=== PATIENT | male | born 1990 | race Native Hawaiian/Other Pacific Islander ===

== ENCOUNTER 2019-01-01 | Outpatient (CLI) | payer OTHER | END 2019-01-01 11:03 | disposition home or self-care (01) | DX: R06.83 Snoring (principal); R06.81 Apnea, not elsewhere classified; G47.8 Other sleep disorders; G47.10 Hypersomnia, unspecified | CPT/HCPCS: 99203; 99212 ==

== ENCOUNTER 2019-02-19 19:18 | Outpatient (CLI) | payer OTHER | END 2019-02-19 19:19 | disposition home or self-care (01) | LOC: SC 19:18 | PROVIDERS: ATTEND Internal Medicine Pulmonary Disease | DX: R06.83 Snoring (principal) | CPT/HCPCS: 95810 ==

== ENCOUNTER 2019-03-06 08:38 | Outpatient (CLI) | payer OTHER ==
--- NOTE | 2019-03-06 09:39 | SLEEP CARE CONSULTATION ---
Information from patient questionnaire entered by Blanca Onofre. I have reviewed and concur with the information entered by Blanca Onofre. This document represents the service I personally performed and the decisions made by me, Nancy Sierra MD, [facility] [place]. History of Present Illness Initial [place] Sleepiness Scale score: 16 Current [place] Sleepiness Scale score: 15 Additional HPI information: HPI: Mr. Colvin returned for follow up of the sleep study he had on 02/19/2019. The polysomnography showed that the patient had slightly reduced sleep efficiency due to frequent awakenings in the second half of the night. Except for mild sleep fragmentation, the sleep architecture was normal. Respiratory monitoring showed no significant sleep disordered breathing (AHI = 4.3) or hypoxia (gt oxygen saturation of 87% and only 0.2% to the total sleep time was spent with oxygen saturation below 90%). The few respiratory events occurred almost exclusively during supine sleep (supine AHI = 6.7; non-supine = 2.34). Snore was loud in intensity. There was no significant periodic leg movement of sleep. Cardiac rhythm was normal sinus rhythm without significant arrhythmia. No abnormal behavior (parasomnia) observed during the night. The patient was informed of these findings. I explained to him that overall he does not have significant sleep disordered breathing but during supine sleep he appears to have mild obstructive sleep apnea-hypopnea. The patient states that he sleeps mostly on his back at home. Allergies and Home Medications Drug allergies reviewed: Yes Home medication list reviewed: Yes Review of Systems Review of systems same as previous: Yes Physical Exam Height: 5 ft 5 in Weight: 175 lb Body Mass Index: 29.1 BMI Classification: Overweight Impression and Plan IMPRESSION: 1. Obstructive Sleep Apnea-Hypopnea Syndrome, positional. The patient would like to have the sleep study repeated with him sleeping more supine like he does at home. PLAN: 1. Repeat the in-laboratory polysomnography. 2. Avoid sleep supine at home for the time being. 3. Try to lose weight. 4. Return for follow up again after the sleep study. I spent 100% of this 20 minute visit face to face with the patient with greater than 50% of this was spent time counseling the patient and coordination of care.
== END 2019-03-06 08:39 | disposition home or self-care (01) ==
LOC: SC 08:38
PROVIDERS: ATTEND Internal Medicine Pulmonary Disease
DX: G47.33 Obstructive sleep apnea (adult) (pediatric) (principal)
CPT/HCPCS: 99212; 99213

== ENCOUNTER 2019-04-01 20:27 | Outpatient (CLI) | payer OTHER | END 2019-04-01 20:28 | disposition home or self-care (01) | LOC: SC 20:27 | PROVIDERS: ATTEND Internal Medicine Pulmonary Disease | DX: R06.83 Snoring (principal); G47.10 Hypersomnia, unspecified; R06.81 Apnea, not elsewhere classified | CPT/HCPCS: 95810 ==

== ENCOUNTER 2019-04-24 08:18 | Outpatient (CLI) | payer OTHER ==
[2019-04-24 09:06] VITALS: BP 126/70
--- NOTE | 2019-04-24 09:06 | SLEEP CARE CONSULTATION ---
Information from patient questionnaire entered by Blanca Onofre. I have reviewed and concur with the information entered by Blanca Onofre. This document represents the service I personally performed and the decisions made by me, Maite Wagner RN, MSN, FIELD RECRUITER. History of Present Illness Initial [place] Sleepiness Scale score: 16 Current [place] Sleepiness Scale score: 14 Additional HPI information: NICHOLE LOTT returnsfor follow up of the recently performed polysomnography and informed of findings. This is the second polysomnography. Since he had apnea mainly supine in his first study he was brought back to re-evaluated sleeping supine only. However, he reports that he had a real difficulty maintaining sleep supine at the recent sleep study. He was unable to go to sleep and sustain sleep until he slept in a different position. At home he usually sleeps on his back as generally it is easier to sleep on his back. He wonders if it was due to all the sleep study equipment. I explained the pathophysiology behind obstructive sleep apnea. Patient does not have sleep apnea and was advised how weight gain could increase the risk of developing sleep apnea in the future. I strongly encouraged the patient to lose weight as he just gained more weight putting his BMI to 30, class one obesity. Weight gain can increase risk of apnea but will also increase snore. Weight loss is best achieved with diet consult. Patient instructed to contact PCP for referral if difficulty losing weight. Snoring can also be treated with an oral appliance from a dentist. Advised to check insurance coverage. In addition, an ENT evaluation can be do to see if other treatment is indicated. He states he does not have difficulty through his nose. Because apnea is primarily in supine position, I also discussed positional management therapy to avoid supine sleep. Measures such as pillow positioning, T shirt with tennis balls sewn in back or Slumberbump product discussed and product information given. Patient counseled not drink alcohol less than 4 hours before bedtime as it can increase snoring and apnea. Patient was cautioned about risks of drowsy driving until sleepiness symptoms resolve. Patient denies drowsy driving. [facility] patient education on snoring and sleep apnea given and reviewed. Review of sleep history reflects that : Patient sleep schedule is bedtime at 9:30-10pm and wake time is about 4:30am to get up to bathroom and unable to return to sleep. His alarm is set at 5:30am. He states it is not due to things to mind, he is just awake. He also reports that he can wake up to 2 other times during the night to use bathroom and can have difficulty getting back to sleep. His initial sleep diary shows that he also reports anxiety some of the time. He has seen a counselor in past. Sleep Study - Polysomnography Polysomnography findings: The quality of the study is good. The patient had reduced sleep efficiency due to prolonged awakenings in the first half of the night.. Despite moderate sleep fragmentation,, the sleep architecture was normal. Respiratory monitoring showed no significant sleep disordered breathing (AHI = 3.7) or hypoxia (gt oxygen saturation of 89%). The few respiratory events occurred almost exclusively during supine sleep (supine AHI = 6.1; non-supine = 1.80). Snore was loud in intensity. There was no significant periodic leg movement of sleep. Cardiac rhythm was normal sinus rhythm without significant arrhythmia. No abnormal behavior (parasomnia) observed during the night. Allergies and Home Medications Known drug allergies: No Home medication list reviewed: No (none) Review of Systems Review of systems same as previous: Yes Physical Exam Blood Pressure: 126/70 Cuff size: long Heart Rate: 64 O2 Saturation: 99 Height: 5 ft 5 in Weight: 182 lb 9.6 oz Body Mass Index: 30.4 BMI Classification: Obesity Class 1 Impression and Plan Snoring but no significant sleep disordered breathing. Patient advised that often weight loss will reduce snoring as well as apnea risk. An oral appliance can also be used for snoring. This would require a dental consultation. Patient cautioned not to use other online appliances as can cause bite issues. Patient is advised to check if insurance will cover. An ENT consult can also be helpful to determine if any other treatment is an option. Patient would like to concentrate on losing weight to reduce snoring and apnea. Since patients apnea is primarily in supine position, patient advised to try positional therapy and agreed with plan. Follow up is scheduled for 2 months to check effectiveness and if further evaluation indicated. While he is working on his treatment to reduce snoring and apnea in supine position, he is advised to follow up with PCP for further evaluation of his fatigue and anxiety. It appears his anxiety may also be affecting his ability to fall back to sleep when awakened. He is also advised to reduce fluid intake a couple of hours before bed to reduce nocturia. A sleep diary will also be completed for further evaluation upon follow up and will be an additional measure to check efficacy of his positional therapy. * positional therapy * Attempt to lose weight * sleep diary - 4 weeks * Follow up with PCP re fatigue / anxiety * Avoid alcohol consumption near bedtime * The patient is cautioned about driving until sleepiness is completely res olved. * Return in 2 months for follow up. I spent 100% of this 35 minute visit face to face with the patient with greater than 50% of this was spent time counseling the patient and coordination of care.
== END 2019-04-24 08:19 | disposition home or self-care (01) ==
LOC: SC 08:18
PROVIDERS: ATTEND Nurse Practitioner Family
DX: R06.83 Snoring (principal); E66.9 Obesity, unspecified; Z68.30 Body mass index [BMI] 30.0-30.9, adult
CPT/HCPCS: 99212; 99214

== ENCOUNTER 2019-06-26 09:07 | Outpatient (CLI) | payer OTHER ==
[2019-06-26 10:01] VITALS: BP 110/70
--- NOTE | 2019-06-26 10:01 | SLEEP CARE CONSULTATION ---
Information from patient questionnaire entered by Blanca Onofre. I have reviewed and concur with the information entered by Blanca Onofre. This document represents the service I personally performed and the decisions made by me, Maite Wagner, RN, MSN, PUMP RUNNER. History of Present Illness Reason for follow up: other (2 month positional therapy and sleep diary) Prior sleep studies: Yes HPI additional information: Patient is returning for follow up of positional therapy and review of sleep diaries. He did not yet get to follow up with his PCP as advised to discuss anxiety that may be affecting sleep. He was not able to lose weight with holiday season. He tried positional therapy by using a tube pillow. This seemed to work some nights and other nights not. He did not notice any difference in sleep refreshment when he felt that he stayed off his back. However, it seems this method did not keep him off his back as spouse noted he tossed and turned alot in sleep in all positions. He also noted that his arm would go to sleep when sleeping prone. He reduced fluid intake prior to sleep but still got up 2 -3 times during the night. Review of sleep diary showed that his sleep was disturbed by stress as well as snoring. He admitted to clock watching and thinking about next day and how much time left to sleep etc increasing difficulty to go to sleep. On days off he will sleep in an hour or two but does not feel any more refreshed. Naps of one hour do not refresh sleep instead cause headache 1-2 times a week It appears he feels he only gets 4-5 hours on average. Sometimes as little as 3 hours and sometimes 6 hours on the weekends. . Subjective Initial [place] Sleepiness Scale score: 16 Current [place] Sleepiness Scale score: 16 Physical Exam Blood Pressure: 110/70 Cuff size: long Heart Rate: 71 O2 Saturation: 98 Height: 5 ft 5 in Weight: 185 lb 9.6 oz (boots / fatigues) Body Mass Index: 30.9 BMI Classification: Obesity Class 1 Impression and Plan 1. Suspected sleep apnea, negative on polysomnography except in supine position. He also had reduced sleep effiiciency due to difficulty sleeping with all the sleep equipment especially electrodes on his head. He continues to wake to snoring as well as stress. His sleep continues to be disrupted by nocturia despite fluid reduction and unknown. Spouse notices a lot of tossing and turning. She has noted him to wake startled. He was unable to maintain positional therapy due to discomfort of arms. He continues to have significant daytime sleepiness symptoms with [place] Sleepiness Scale 16. His weight has increased by 10 pounds since last sleep study and he is having difficulty losing weight recently. His airway is narrow as exhibited by a Mallapatti lll with no visualization of uvula. Tongue is enlarged with teeth barnard on lateral edges. Thus I advised re-evaluation for sleep disordered breathing but this time with a home sleep study so patient has no electrodes on his head to disturb sleep and is in home environment for better sleep efficiency and evaluation. 2. Insomnia, that could be related to stress and clock watching as well as irregular sleep schedule and apnea. Thus until another sleep study is completed, he is advised to wake at the same time at 5am. I explained the homestatic sleep drive and importance of regular sleep schedule so ready to sleep later at night. To get 7 hours of sleep, his bedtime should be about 10pm but only if sleepy. He already winds down before sleep by watching TV. Electronics should be avoided 1-2 hours before bedtime as the bright light can reduce the endogenous melatonin and the activity of the computer, tablet, cell phone etc can be alerting. TV is okay but content needs to be relaxing and the brightness dimmed. A warm bath or shower is another way to assist transition to sleep. In addition, it is important to have a sleep environment conducive to sleep such as a comfortable bed, comfortable temperature and quiet. The alarm clock should be set and the face covered to prevent clock watching if awakened during the night. Knowing the time can cause anxiety and increase alertness and thinking about sleep time and preparation for the next day. Instead if awakened after sleep, the patient is to position for comfort or use bathroom and return to sleep. If unable to go to sleep in an estimated 20 minutes of more, it is advised to leave the bedroom and engage in a quiet activity until sleepy enough to return to bed. If unable to sleep due to things on the mind, it is recommended to write out the concerns or list to do as a release then return to a quiet activity until sleepy enough to return to bed. This is to be repeated as often as necessary to assoc iate the bed with sleep and not frustration to get to sleep. AASM How to Sleep Better pamphlet given and reviewed. He is also advised to follow up with his PCP in regard further evaluation of stress and informed how counseling can assist in developing life skills / tools to deal with stress. Sleep diary to implement new schedule and re evaluation. A 2 week sleep diary will also be completed. * Home sleep study * Implement methods to reduce insomnia * 2 week sleep diary * Follow up with PCP for further evaluation of anxiety. * Attempt to lose weight * Avoid alcohol consumption near bedtime * The patient is cautioned about driving until sleepiness is completely resolved. * Return after HST to discuss results. . Time Spent with Patient (minutes): 40 I spent 100% of this visit face to face with the patient with greater than 50% of this was spent time counseling the patient and coordination of care.
== END 2019-06-26 09:08 | disposition home or self-care (01) ==
LOC: SC 09:07
PROVIDERS: ATTEND Nurse Practitioner Family
DX: G47.10 Hypersomnia, unspecified (principal); R06.83 Snoring; G47.00 Insomnia, unspecified; E66.9 Obesity, unspecified; Z68.30 Body mass index [BMI] 30.0-30.9, adult
CPT/HCPCS: 99212; 99215

== ENCOUNTER → 2019-07-10 | Outpatient (CLI) | payer OTHER | LOC: SC 19:30 | PROVIDERS: ATTEND Internal Medicine Pulmonary Disease | DX: G47.33 Obstructive sleep apnea (adult) (pediatric) (principal) | CPT/HCPCS: 95806 ==

== ENCOUNTER 2019-08-01 15:42 | Outpatient (CLI) | payer OTHER ==
[2019-08-01 16:46] VITALS: BP 127/81
--- NOTE | 2019-08-01 16:46 | SLEEP CARE CONSULTATION ---
Information from patient questionnaire entered by Madyson Mahoney. I have reviewed and concur with the information entered by Madyson Mahoney. This document represents the service I personally performed and the decisions made by me, Maite Wagner, RN, MSN, FOOD HANDLER. History of Present Illness Initial [place] Sleepiness Scale score: 16 Current [place] Sleepiness Scale score: 16 Additional HPI information: NICHOLE LOTT returns for follow up and results of the recently performed home sleep study. I explained the pathophysiology behind obstructive sleep apnea. We then spent quite a bit of time discussing different treatment options. For mild obstructive sleep apnea, surgery and oral appliance are alternatives to nasal CPAP therapy but in moderate or severe cases, nasal CPAP is the most effective and reliable treatment. I reviewed the impact of weight changes on sleep apnea and strongly recommended losing weight. After some discussion, the patient opted to go with the nasal CPAP therapy. I discussed the option of a manual titration study or autoCPAP to initiate treatment and patient chose autoCPAP as did not sleep well in polysomnography. Nasal autoCPAP set at [id number] will be ordered with rationale explained. A manual titration study will be ordered if unable to find optimal pressure with office adjustments. I explained how CPAP machine works with sample devices [employer] Dreamstation and [employer] [id number] and what to expect when using the machine. Using CPAP every night in order to get used to it was emphasized. Patient advised to put CPAP mask on before getting into bed so as not to fall asleep without CPAP. To assist acclimation to CPAP use, it could also be used for a short time during day while reading or watching TV. The patient was instructed to call the CPAP supplier to discuss any mechanical problem that may occur. If the mask given is uncomfortable or is difficult to keep on through the night even with adjustment, contact the CPAP supplier as many will replace with another mask style if notified before 30 days. If snoring or perceives is not getting enough air or too much air from the machine, notify this office. AASM patient education PAP tips reviewed and given to patient. Dreamstation preferred by patient. Patient counseled not drink alcohol less than 4 hours before bedtime as it can increase snoring and apnea. Patient was cautioned about risks of drowsy driving until sleepiness symptoms resolve. Patient denies drowsy driving. Sleep diaries completed and still fatigued with regular sleep schedule but only 6 hours of sleep with 11pm bedtime and wake time of 5-5:30. ] Sleep Study - Results Polysomnography/Home Sleep Study results: SLEEP TIME AND EFFICIENCY: The sleep study recording began at 09:57:00 PM and ended at 05:02:00 AM. Total recording time was 425.0 minutes. The total sleep time was 394.5 minutes. The sleep efficiency was 92.8 percent. The patient spent 223.7 minutes supine, and spent 170.8 minutes non-supine. The patients own estimate of sleep time was 5.50 hours. RESPIRATORY DATA: The AHI in this report is indexed to sleep time based on actigraphy. The AASM defines this as GWEN. The AHI on this type 3 Home Sleep Study may understate the AHI determined on a type 1 or 2 study, since EEG is not monitored resulting in the inability to score non-desaturating hypopneas. Based on 4% Calculation: The AHI4% calculation of 19.3 per hour of recording time was based on a total of 96 scored apneas and 31 scored hypopneas with 4% desaturations. Supine AHI4%: 28.4 per hour. Non-supine AHI4%: 7.4 per hour. Oxygen Summary: Patient's baseline O2 saturation was 98.5 %. The patient spent 2.8 minutes at an oxygen saturation less than 90%, and 0.1 minutes less than 85%. The desaturation index was 17.8 events per hour sleep time. The lowest saturation was 79.7 %. SNORING: The percent of the study time spent snoring was 20.2 %. The Snoring Count was 2274 . The Snoring Index was Patient Name: Nichole Lott Study Date: 07/10/2019 : 1990 Page 2 of 7 532.9 . PULSE RATE REVIEW: The mean heart rate was 56 beats per minute. The rate ranged from a low of 38 to a high of 94 beats per minute. DIAGNOSIS CODE: Moderate obstructive sleep apnea G47.33, occurring more frequently during supine sleep. Moderate desaturations were noted. Allergies and Home Medications Known drug allergies: No Home medication list reviewed: Yes (none) Review of Systems Review of systems same as previous: Yes Physical Exam Blood Pressure: 127/81 Cuff size: wrist Heart Rate: 77 O2 Saturation: 98 Height: 5 ft 5 in Weight: 183 lb 12.8 oz Weight change since last visit: lost 2 pounds Body Mass Index: 30.6 BMI Classification: Obese Impression and Plan 1. Obstructive Sleep Apnea-Hypopnea Syndrome, moderate, with lowest oxygen saturation of 79.7%. Obviously this is the cause of the patients symptoms of unrefreshed sleep, and excessive daytime sleepiness. As mentioned above, the patient will be started on nasal autoCPAP therapy with pressure set at 4-15 cmH2 O. A manual titration study will be completed if unable to find optimal treatmen t pressure with office adjustments. Compliance guidelines also reviewed. A copy of compliance guidelines will be given for reference at check out. Because the apnea is more severe supine, I instructed to avoid sleeping supine using pillow positioning until able to start CPAP use. * Nasal auto CPAP therapy, pressure at 4-15 cm H2O. * Attempt to lose weight. * Avoid alcohol consumption near bedtime. * Avoid supine sleep until using CPAP. * The patient is again cautioned about driving until sleepiness completely resolves. * Return one month after CPAP obtained. I will assess response to therapy and co mpliance at that time. Time Spent with Patient (minutes): 30 I spent 100% of this visit face to face with the patient with greater than 50% of this was spent time counseling the patient and coordination of care.
== END 2019-08-01 15:43 | disposition home or self-care (01) ==
LOC: SC 15:42
PROVIDERS: ATTEND Nurse Practitioner Family
DX: G47.33 Obstructive sleep apnea (adult) (pediatric) (principal); E66.9 Obesity, unspecified; Z68.30 Body mass index [BMI] 30.0-30.9, adult
CPT/HCPCS: 99212; 99214

== ENCOUNTER 2019-09-19 17:04 | Outpatient (CLI) | payer OTHER ==
--- NOTE | 2019-09-19 15:29 | SLEEP CARE CONSULTATION ---
Information from patient questionnaire entered by Blanca Onofre. I have reviewed and concur with the information entered by Blanca Onofre. This document represents the service I personally performed and the decisions made by me, Maite Wagner, RN, MSN, APPOINTMENT CLERK. History of Present Illness Service Date and Time: 09/19/2019 1530 Previous diagnosis: Moderate, Obstructive Sleep Apnea-Hypopnea Syndrome AHI: 19.3 Reason for follow up: first compliance Equipment type: CPAP Equipment obtained from: [employer] Mask style: Full face Mask brand: [employer]ironics Backup mask available: No (keep current mask as spare when replaced) Last cushion change: not since set up CPAP Compliance Data - Data Reviewed with Patient Average duration of nightly device use: 5h 40m Compliance rate %: 93.3 Current pressure setting (cmH2O): 4-15 Humidity settin Heated hose settin Average residual AHI: 6.3 Average large leak: 3m 10s Subjective Patient concerns: reports: other (increased flatus ). denies: aerophagia, mask discomfort, air blowing in eyes, mask leak noise, condensation in mask/hose, nasal congestion, dry mouth, nose, throat, epistaxis Observed to snore while using device: Yes (slight snore) Current pressure setting perceived as: too low (initially) On therapy, patient: reports: sleeping better, awakening more refreshed, being more awake and alert during the day, more rested overall (with more energy during the day) Initial [place] Sleepiness Scale score: 16 Current [place] Sleepiness Scale score: 10 Allergies and Home Medications Home medication list reviewed: No (no changes) Physical Exam Height: 5 ft 5 in Weight: 177 lb (home weight) Body Mass Index: 29.4 BMI Classification: Overweight Impression and Plan 1. Obstructive Sleep Apnea-Hypopnea Syndrome, moderate, with good treatment compliance and slightly elevated residual AHI apnea control. On CPAP therapy, the patient has better sleep quality and is more rested overall with more energy. To reduce air hunger at initiation of treatment, he is advised to raise ramp feature to 6cmH20 as directed. If further direction needed he can contact Licha. The patients pressure will be changed to autoCPAP 9 -15 cmH20 For elevation of residual AHI. Current mean pressure is 9.3cm and 90% pressure is 12.6cmH20. Patient advised to contact me if pressure change is uncomfortable so that it can be adjusted. Goals for apnea control discussed. He was also advised that most people require 7-9 hours for optimal mental and physical function and to strive for more sleep. In addition, I advised patient to change mask cushon regularly to maintain fit and comfort of mask. Patient's apnea severity and rationale for treatment to reduce apnea, improve sleep quality and reduce cardi ovascular and cerebrovascular events was reviewed. Patient reports mild drowsiness feeling but no falling asleep when driving occasionally. He was advised of risks of drowsy driving and to gizzard puller and rest at first sign of drowsiness with rationale discussed. patient agreed with plan. It is hoped the above measures will further reduce sleepiness symptoms and increase benefit of CPAP treatment. * Change CPAP pressure to 9-15 cmH2O * increase ramp to 6cmH20. * Notify me if snoring with mask or feeling that the pressure is too much or too little * Attempt to lose weight * Call this office if any problems using CPAP * Return for follow up in 1 month , or sooner if concerns arise Visit Type: Telehealth Video (to minimize the risk of COVID 19 exposure, patient agreed to this visit and billing his insurance) Video Type: Disability Care [employer]ivers Patient Location: Home Location of Provider: Home Patient agrees and consents to this telehealth visit type: Yes Time Spent with Patient (minutes): 16 Provider Statement: I spent 100% of the Telehealth Video Call with the patient with greater than 50% spent counseling the patient and coordination of care.
== END 2019-09-19 17:05 | disposition home or self-care (01) ==
LOC: SC 17:04
PROVIDERS: ATTEND Nurse Practitioner Family
DX: G47.33 Obstructive sleep apnea (adult) (pediatric) (principal); E66.3 Overweight; Z68.29 Body mass index [BMI] 29.0-29.9, adult

== ENCOUNTER 2019-10-25 15:02 | Outpatient (CLI) | payer OTHER ==
--- NOTE | 2019-10-25 14:01 | SLEEP CARE CONSULTATION ---
Information from patient questionnaire entered by Madyson Mahoney. I have reviewed and concur with the information entered by Madyson Mahoney. This document represents the service I personally performed and the decisions made by me, Maite Wagner, RN, MSN, MONOMER PURIFICATION OPERATOR. History of Present Illness Service Date and Time: 10/25/2019 1330 Previous diagnosis: Moderate, Obstructive Sleep Apnea-Hypopnea Syndrome AHI: 19.3 (in 2019) Reason for follow up: one month (pressure change) Equipment type: CPAP Equipment obtained from: [facility] (has not recieved any new supplies yet - patient will call) Mask style: Full face Backup mask available: Yes (mask cushion only ) Last cushion change: not since set up Prior sleep studies: Yes Year and Where: 2019 - [facility] Type of Sleep Study: Home sleep study CPAP Compliance Data - Data Reviewed with Patient Average duration of nightly device use: 4.2 Compliance rate %: 50 Current pressure setting (cmH2O): 9-15 Humidity settin Heated hose settin Average residual AHI: 3.8 Average large leak: 9 min 43 sec Subjective Missed days of use due to: reports: other (falling asleep without CPAP after caring for infant) Patient concerns: reports: other (mild skin irritation described as red and dry - washing mask every day / adjusting ). denies: aerophagia, mask discomfort, air blowing in eyes, mask leak noise, condensation in mask/hose, nasal congestion, dry mouth, nose, throat, epistaxis Observed to snore while using device: Yes (mild ) Current pressure setting perceived as: too high (initially / not using ramp) On therapy, patient: reports: sleeping better, awakening more refreshed, being more awake and alert during the day, more rested overall. denies: drowsiness while driving Initial [place] Sleepiness Scale score: 16 (in 2019) Allergies and Home Medications Home medication list reviewed: No (no changes) Review of Systems Review of systems same as previous: Yes Physical Exam Height: 5 ft 5 in Weight: 176 lb (home weight) Body Mass Index: 29.2 BMI Classification: Overweight Impression and Plan 1. Obstructive Sleep Apnea-Hypopnea Syndrome, moderate , with fair treatment compliance and good apnea control. On CPAP therapy, the patient has better sleep quality and is more rested overall. Current pressure range reduced residual AHI to normal and reduced initial air hunger but now it seems too high initially. Patient forgot about the ramp feature. So advised to try the current setting at 6cmH20 and if needed he can adjust to comfort. For snore, I will increase his starting range to [id number]. He is to contact me if continued problems with pressure comfort and use of CPAP. To reduce falling asleep without CPAP when caring for infant he is to put mask on pillow. To reduce skin irritation, he is advised to try cloth barriers found online as described. Patient's apnea severity and rationale for treatment to reduce apnea, improve sleep quality and reduce cardiovascular and cerebrovascular events was reviewed. I also counseled him on the importance of keeping a healthy weight for overall health and how weight can affect his apnea risk and CPAP pressure. Current BMI is 29.2, he is advised to lose weight. * Change auto CPAP pressure to 10-15 cmH2O * Use ramp * mask barrier * Notify me if snoring with mask or feeling that the pressure is too much or too little * Attempt to lose weight * Call this office if any problems using CPAP * Return for follow up in1-2 months , or sooner if concerns arise Visit Type: Telehealth Video Video Type: Driven[place] Patient Location: Home Location of Provider: Home Patient agrees and consents to this telehealth visit type: Yes Patient agrees to have their insurance billed: Yes Time Spent with Patient (minutes): 20 Provider Statement: I spent 100% of the Telehealth Video Call with the patient with greater than 50% spent counseling the patient and coordination of care.
== END 2019-10-25 15:03 | disposition home or self-care (01) ==
LOC: SC 15:02
PROVIDERS: ATTEND Nurse Practitioner Family
DX: G47.33 Obstructive sleep apnea (adult) (pediatric) (principal); E66.3 Overweight; Z68.29 Body mass index [BMI] 29.0-29.9, adult

== ENCOUNTER 2020-02-25 13:38 | Outpatient (CLI) | payer OTHER ==
[2020-02-25 14:44] VITALS: BP 128/72
--- NOTE | 2020-02-25 14:44 | SLEEP CARE CONSULTATION ---
Information from patient questionnaire entered by Madyson Mahoney. I have reviewed and concur with the information entered by Madyson Mahoney. This document represents the service I personally performed and the decisions made by me, Maite Wagner, RN, MSN, SENIOR LINUX UNIX ADMINISTRATOR. History of Present Illness Service Date and Time: 02/25/2020 1338 Previous diagnosis: Moderate, Obstructive Sleep Apnea-Hypopnea Syndrome AHI: 19.3 (in 2019) Reason for follow up: one month Equipment type: CPAP Equipment obtained from: [employer] (just received supplies and some are for a [employer]s Med CPAP- patient will call today to correct. Not opened.) Mask style: Full face Backup mask available: Yes (old mask ) Last cushion change: a few days ago Prior sleep studies: Yes Year and Where: 2019 - [facility] Type of Sleep Study: Polysomnography Sleep Study - Results Prior sleep studies: Yes Year and Where: 2019 - [facility] CPAP Compliance Data - Data Reviewed with Patient Average duration of nightly device use: 4.4 Compliance rate %: 50 Current pressure setting (cmH2O): 10-15 Humidity settin Heated hose settin Average residual AHI: 3.0 Average large leak: 1 min 43 sec Subjective Missed days of use due to: reports: other (unable to use when on detachment due to lack of electricity while sleeping) Patient concerns: reports: aerophagia (2 times a week wakes with mild abdominal bloating and relieved with burping and flatus ). denies: mask discomfort, air blowing in eyes, mask leak noise, condensation in mask/hose, nasal congestion, dry mouth, nose, throat, epistaxis, other Observed to snore while using device: No Current pressure setting perceived as: comfortable On therapy, patient: reports: sleeping better, awakening more refreshed, being more awake and alert during the day, more rested overall. denies: drowsiness while driving Initial [place] Sleepiness Scale score: 16 (in 2019) Current [place] Sleepiness Scale score: 14 Allergies and Home Medications Known drug allergies: No Home medication list reviewed: No (no meds) Review of Systems Review of systems same as previous: Yes Physical Exam Blood Pressure: 128/72 Cuff size: regular Heart Rate: 76 O2 Saturation: 98 Height: 5 ft 5 in Weight: 182 lb (with fatigues and boots ) Body Mass Index: 30.2 BMI Classification: Obese Impression and Plan 1. Obstructive Sleep Apnea-Hypopnea Syndrome, moderate, with fair treatment compliance and good apnea control. On CPAP therapy, the patient has better sleep quality and is more rested overall. To reduce symptoms of aerophagia, the CPAP pressure will be reduced to 10-13 cmH2O. Patient advised to contact me if this does not reduce symptoms or if pressure change uncomfortable. Patient has only improved compliance 5% due to detachment on boat and not access to electricity while sleeping. We talked about the battery option for his CPAP. The battery can last 48 hours before needing recharged and is not to be used with the humidity as it draws too much power. Instead he can use saline nasal spray sample given prior to CPAP to clear nose of secretions and add additional moisture. He must get the CPAP battery prescription from his PCM and contact [facility]. If [employer] does not have, he can check [employer] customer service. His CPAP use has increased to normal range the past week since his mother has come to assist with childcare. He is to strive for minimum of 7 hours of sleep as discussed last visit and reminded of health risks of insufficient sleep. However, he has gained 7 pounds since last seen and thus advised to lose weight as significant weight gain can increase apnea risk and CPAP pressure requirements as well as health risks if obese. Questions answered if lifetime use of CPAP. Patient advised that it is dependent if loses weight and if this corrects his apnea. Process discussed. Patient's apnea severity and rationale for treatment to reduce apnea, improve sleep quality and reduce cardiovascular and cerebrovascular events was reviewed. Since patient has more severe apnea in supine position, patient advised to avoid supine sleep with pillow positioning if unable to use CPAP while ill or if without electricity to reduce apnea risk. * Change auto CPAP pressure at 10-13 cmH2O * Follow up with PCP for prescription for CPAP battery. * Notify me if snoring with mask or feeling that the pressure is too much or too little * Attempt to lose weight * Call this office if any problems using CPAP * Return for follow up in 1-2 months, or sooner if concerns arise Visit Type: In Office Time Spent with Patient (minutes): 30 Provider Statement: I spent 100% of the Face to Face Visit with the patient with greater than 50% spent counseling the patient and coordination of care.
== END 2020-02-25 13:39 | disposition home or self-care (01) ==
LOC: SC 13:38
PROVIDERS: ATTEND Nurse Practitioner Family
DX: G47.33 Obstructive sleep apnea (adult) (pediatric) (principal)
CPT/HCPCS: 99212; 99214

== ENCOUNTER 2020-04-18 12:14 | Outpatient (CLI) | payer OTHER ==
--- NOTE | 2020-04-18 11:40 | SLEEP CARE CONSULTATION ---
Information from patient questionnaire entered by Madyson Mahoney. I have reviewed and concur with the information entered by Madyson Mahoney. This document represents the service I personally performed and the decisions made by me, Maite Wagner, RN, MSN, WINDOW SHADE CUTTER. History of Present Illness Service Date and Time: 04/18/2020 1100 Previous diagnosis: Moderate, Obstructive Sleep Apnea-Hypopnea Syndrome AHI: 19.3 (in 2019) Reason for follow up: other (2 month with pressure change) Equipment type: CPAP Equipment obtained from: [facility] (getting supplies as needed) Mask style: Full face Backup mask available: Yes (old mask ) Last cushion change: 3 weeks ago Prior sleep studies: Yes Year and Where: 2019 - [facility] Type of Sleep Study: Polysomnography CPAP Compliance Data - Data Reviewed with Patient Average duration of nightly device use: 5 hr 28min Compliance rate %: 86.7 (60 days) Current pressure setting (cmH2O): 10-13 Humidity settin Heated hose settin Average residual AHI: 3.1 Average large leak: 1 min 10 sec Subjective Patient concerns: denies: aerophagia, mask discomfort, air blowing in eyes, mask leak noise, condensation in mask/hose, nasal congestion, dry mouth, nose, throat, epistaxis, other Observed to snore while using device: No Current pressure setting perceived as: comfortable On therapy, patient: reports: sleeping better, awakening more refreshed, being more awake and alert during the day, more rested overall. denies: drowsiness while driving Initial [place] Sleepiness Scale score: 16 (in 2019) Current [place] Sleepiness Scale score: 8 (verbal response to questions) Allergies and Home Medications Known drug allergies: No Home medication list reviewed: No (no medications) Review of Systems Review of systems same as previous: Yes Physical Exam Height: 5 ft 5 in Weight: 182 lb (no changes ) Body Mass Index: 30.2 BMI Classification: Obese Impression and Plan 1. Obstructive Sleep Apnea-Hypopnea Syndrome, moderate, with good treatment compliance and good apnea control. On CPAP therapy, the patient has better sleep quality and is more rested overall. The lower pressure range has resolved his aerophagia. He is also sleeping better on this pressure. He has improved average CPAP use with sleep to 5.5 hours. Previous compliance was less due to detachment and inability to use CPAP as well as shared care of infant daughter. His mother has been assisting with care of infant until recently. To reduce inability to use CPAP while detached, he is again advised to follow up with his PCM to obtain a prescription for a CPAP battery. If he has any difficulty getting the battery, he is advised to contact this office. I reviewed how maximum benefit of CPAP will be obtained when he is able to obtain more sleep. Most people require 7-9 hours of sleep for optimal mental and physical function. Thus patient is advised to strive for a minimum of 7 hours of sleep. Patient's apnea severity and rationale for treatment to reduce apnea, improve sleep quality and reduce cardiovascular and cerebrovascular events was reviewed. * Continue auto CPAP pressure at 10-13 cmH2O * Follow up with PCP re CPAP battery * Obtain more sleep * Notify me if snoring with mask or feeling that the pressure is too much or too little * Attempt to lose weight * Call this office if any problems using CPAP * Return for follow up in 6 months , or sooner if concerns arise Visit Type: Telehealth Video Video Type: [place] Patient Location: parked car Location of Provider: Home Patient agrees and consents to this telehealth visit type: Yes Patient agrees to have their insurance billed: Yes Time Spent with Patient (minutes): 16 Provider Statement: I spent 100% of the Telehealth Video Call with the patient with greater than 50% spent counseling the patient and coordination of care.
== END 2020-04-18 12:15 | disposition home or self-care (01) ==
LOC: SC 12:14
PROVIDERS: ATTEND Nurse Practitioner Family
DX: G47.33 Obstructive sleep apnea (adult) (pediatric) (principal); E66.9 Obesity, unspecified; Z68.30 Body mass index [BMI] 30.0-30.9, adult

== ENCOUNTER 2021-05-06 08:38 | Outpatient (CLI) | payer OTHER ==
--- NOTE | 2021-05-06 17:56 | MRI Report ---
PROCEDURE: Hand RT W/O INDICATIONS: SPRAIN OF RIGHT THUMB TECHNIQUE: Noncontrast oblique coronal T1 spin echo and T2 fast spin echo with fat saturation, axial and sagitta l T2 fast spin echo with fat saturation, through the thumb. COMPARISON: None. FINDINGS: Image quality: There is mild inhomogeneous fat saturation. Bones: The bones are normally aligned, without marrow contusions or fractures. No intra-osseous les ions. First carpometacarpal joint: On sagittal images, the dorsal radial ligament and posterior oblique li gament appear intact. The intermetacarpal ligament between the 1st and 2nd metacarpal bases is not w ell visualized but appears grossly intact. On the volar aspect, the deep and superficial layers of t he anterior oblique ligament appear grossly intact. First metacarpophalangeal joint: The radial collateral ligament appears intact, along with overlying fibers of the abductor pollicis brevis tendon. The ulnar collateral ligament appears intact, along with overlying fibers of the adductor pollicis muscle. The aponeurosis of the adductor pollicis musc le also appears grossly intact. The volar plate appears attenuated in appearance suggesting sequelae of a sprain. Thenar muscles: The visualized musculature demonstrates preserved signal and bulk. Flexor pollicis longus tendon: Tendon fibers appear intact, coursing between the thenar eminence mus cles and the adductor pollicis muscle, and inserting on the volar base of the distal phalanx. There i s a small amount of associated tenosynovial fluid. Extensor tendons: The extensor pollicis brevis tendon appears intact. The extensor pollicis longus tendon appears intact as it inserts on the dorsal base of the distal phalanx. The sagittal band at t he level of the first MCP joint appears intact. Miscellaneous: No ganglion cysts. IMPRESSION: 1. Attenuated appearance of the volar plate at the first metacarpophalangeal joint suggesting sequela e of a sprain. 2. Mild tenosynovitis along the flexor pollicis longus tendon. Reviewed by: Grant Leroy MD on 05/06/2021 4:55 PM [place] Approved by: Grant Leroy MD on 05/06/2021 4:55 PM [facility] Station ID: [id number]
== END 2021-05-06 08:39 | disposition home or self-care (01) ==
LOC: DI 08:38
PROVIDERS: ATTEND Student in an Organized Health Care Education/Training Program
DX: S63.681A Other sprain of right thumb, initial encounter (principal); M65.841 Other synovitis and tenosynovitis, right hand